=== PATIENT | female | born 1985 | race African-American/Black ===

== ENCOUNTER 2021-06-29 12:04 | Emergency (ER) | payer MEDICAID, OTHER ==
[~2021-06-29] VITALS: Ht 162.6 cm; Wt 73.0 kg
[2021-06-29] MEDS ORDERED: SODIUM CHLORIDE 0.9% 1000ML BAG (SEPSIS BOLUS) IV ONE (14:15)
[2021-06-29] MEDS ORDERED: VANCOMYCIN 1G PREMIX 200 ML IV ONE (14:15)
[2021-06-29] MEDS ORDERED: VANCOMYCIN 1G PREMIX 200 ML IV SCH (14:15)
[2021-06-29] MEDS ORDERED: AMPICILLIN SOD/SULBACTAM NA 3 G in SODIUM CHLORIDE 0.9% 100 ML IV SCH (14:15)
[2021-06-29 14:30] LABS: BASOPHILS % 0.9 % (0.0-2.0); EOSINOPHILS % 4.6 % (0.0-5.0); HEMATOCRIT. 39.9 % (36.0-48.0); HEMOGLOBIN. 13.3 g/dL (12.0-16.0); LYMPHOCYTES % 29.9 % (20.0-50.0); MEAN CORPUSCULAR HEMOGLOBIN 27.2 pg (28.0-32.0); MEAN CORPUSCULAR VOLUME 81.7 fL (81.0-99.0); MEAN PLATELET VOLUME 9.7 fl (7.4-10.4); MONOCYTES % 7.7 % (2.0-8.0); NEUTROPHILS % 56.9 % (40.0-76.0); PLATELET 318 x1000/uL (130-400); RED BLOOD CELL COUNT 4.88 mill/uL (4.2-5.4); RED CELL DISTRIBUTION WIDTH 14.2 % (11.6-14.6)
[2021-06-29 14:37] LABS: CHLORIDE 107 mEq/L (98-107)
[2021-06-29 14:38] LABS: HCG SCREEN NEGATIVE
[2021-06-29] MEDS: AMPICILLIN SOD/SULBACTAM NA 3 G in SODIUM CHLORIDE 0.9% 100 ML IV SCH ×2 (14:44→23:27)
[2021-06-29] MEDS ORDERED: POTASSIUM CHLORIDE 20MEQ TABLET SR PO ONE (15:15)
[2021-06-29] MEDS: VANCOMYCIN 1G PREMIX 200 ML IV NR ×3 (15:59→17:39)
[2021-06-29] MEDS ORDERED: AMOX-424 MT (16:27)
[2021-06-29] MEDS ORDERED: DOXY100C5 MT (16:27)
[2021-06-29] MEDS ORDERED: ACETAMINOPHEN 325MG TABLET PO ONE (16:30)
[2021-06-29] MEDS ORDERED: VANCOMYCIN 750 MG in DEXT 5% WATER 250 ML IV SCH (23:00)
[2021-06-30] MEDS: AMPICILLIN SOD/SULBACTAM NA 3 G in SODIUM CHLORIDE 0.9% 100 ML IV SCH ×2 (02:15→05:24)
[2021-06-30] MEDS ORDERED: VANCOMYCIN 750 MG in DEXT 5% WATER 250 ML IV SCH (07:00)
[2021-06-30 09:58] VITALS: BP 113/86
== END 2021-06-30 10:18 | disposition left against medical advice (07) ==
LOC: ER 12:04 → CANBEDREQ 21:22 → ER 06-30 10:18
DX: M79.642 Pain in left hand (principal); W55.01XA Bitten by cat, initial encounter; Y93.89 Activity, other specified; Y92.89 Other specified places as the place of occurrence of the external cause; Y99.8 Other external cause status
CPT/HCPCS: 36415; 73130; 80053; 83605; 84145; 84703; 85025; 87040; 87077; 93005; 96365; 96367; 99285; J0295; J3370; J7030; J7050; J7060